=== PATIENT | female | born 1965 | race Caucasian/White ===

== ENCOUNTER → 2017-01-02 | Outpatient (CLI) | payer BC ==
[~2017-01-02] VITALS: Ht 157.5 cm; Wt 95.3 kg
[2017-01-02 13:42] LABS: HEMOGLOBIN 12.6 gm/dl (12.3-15.3); RED BLOOD COUNT 3.83 M/UL (4.00-5.10); WHITE BLOOD COUNT 3.9 K/UL (4.5-11.0)
[2017-01-02 14:03] LABS: BUN/CREATININE RATIO 16 (0-10)
== END ==
LOC: OPSV 01-01 13:00
PROVIDERS: Internal Medicine Gastroenterology
DX: K50.90 Crohn's disease, unspecified, without complications (principal)
CPT/HCPCS: 36415; 80053; 85025; 85027; 86140; 96375; 96413; 96415; J1720; J1745; Q0163

== ENCOUNTER → 2017-02-06 | Outpatient (CLI) | payer BC ==
[2017-02-06 13:02] LABS: HEMOGLOBIN 11.7 gm/dl (12.3-15.3); RED BLOOD COUNT 3.56 M/UL (4.00-5.10); WHITE BLOOD COUNT 4.7 K/UL (4.5-11.0)
== END ==
LOC: LAB 12:29
PROVIDERS: Internal Medicine Gastroenterology
DX: D72.819 Decreased white blood cell count, unspecified (principal)
CPT/HCPCS: 36415; 85025

== ENCOUNTER → 2017-03-05 | Outpatient (CLI) | payer BC ==
[~2017-03-05] VITALS: Ht 157.5 cm; Wt 95.3 kg
[2017-03-05 14:02] LABS: HEMOGLOBIN 12.8 gm/dl (12.3-15.3); RED BLOOD COUNT 3.88 M/UL (4.00-5.10); WHITE BLOOD COUNT 3.9 K/UL (4.5-11.0)
[2017-03-05 14:23] LABS: BUN/CREATININE RATIO 16 (0-10)
== END ==
LOC: OPSV 12:51
PROVIDERS: Internal Medicine Gastroenterology
DX: K50.90 Crohn's disease, unspecified, without complications (principal)
CPT/HCPCS: 36415; 80053; 85025; 86140; 96375; 96413; 96415; J1720; J1745; Q0163

== ENCOUNTER → 2017-03-13 | Outpatient (CLI) | payer BC | LOC: RAD 14:59 | DX: K50.90 Crohn's disease, unspecified, without complications (principal); Z79.899 Other long term (current) drug therapy | CPT/HCPCS: 71020 ==

== ENCOUNTER → 2017-07-09 | Outpatient (CLI) | payer BC ==
[~2017-07-09] VITALS: Ht 157.5 cm; Wt 97.5 kg
[2017-07-09 13:34] LABS: HEMOGLOBIN 12.1 gm/dl (12.3-15.3); RED BLOOD COUNT 3.89 M/UL (4.00-5.10); WHITE BLOOD COUNT 4.9 K/UL (4.5-11.0)
[2017-07-09 14:05] LABS: BUN/CREATININE RATIO 17 (0-10)
== END ==
LOC: OPSV 12:44
PROVIDERS: Internal Medicine Gastroenterology
DX: K50.90 Crohn's disease, unspecified, without complications (principal)
CPT/HCPCS: 36415; 80053; 85025; 86140; 96375; 96413; 96415; J1720; J1745; Q0163

== ENCOUNTER → 2021-06-13 | Outpatient (CLI) | payer BC | LOC: KOH-I 15:01 | DX: B34.9 Viral infection, unspecified (principal); R91.8 Other nonspecific abnormal finding of lung field | CPT/HCPCS: 71046 ==

== ENCOUNTER 2021-07-08 15:40 | Emergency (ER) | payer BC ==
[~2021-07-08] VITALS: Ht 160 cm; Wt 95.3 kg
== END 2021-07-08 18:30 | disposition home or self-care (01) ==
LOC: ER1 15:40
DX: Z23 Encounter for immunization (principal); U07.1 COVID-19; D64.9 Anemia, unspecified; Z88.8 Allergy status to other drugs, medicaments and biological substances
CPT/HCPCS: 99283; M0243